=== PATIENT | female | born 1965 | race Caucasian/White ===

== ENCOUNTER → 2016-11-16 | Outpatient (CLI) | payer BC ==
[2016-08-25 14:24] VITALS: BP 119/79
--- NOTE | 2016-11-16 10:06 | MRI ---
HISTORY: Lumbosacral spondylitis Study: MRI lumbar spine without contrast Comparison: 04/08/2015 Technique: Multiplanar multi-sequence MRI of the lumbar spine was obtained. Sagittal T1, sagittal T 2, and stir weighted images, axial T1, and axial T2 images were obtained. Findings: The lumbar spine demonstrates normal alignment. No abnormal cord or marrow signal identified. The c onus of the cord terminates normally. The surrounding soft tissues are within normal limits. Verteb ral body heights are preserved. There is degenerative disc space narrowing and spondylosis at L5-S1 with associated degenerative endplate changes. T12 -- L1: No significant stenosis identified. L1 -- L2: No significant stenosis identified. L2 -- L3: No significant stenosis identified. There are mild facet degenerative changes present. L3 -- L4: No significant stenosis identified. Mild facet degenerative changes are present. L4 -- L5: No significant stenosis identified. Mild to moderate bilateral facet degenerative changes are present. L5 -- S1: There is a stable disc bulge with minimal central disc protrusion at this level contacting the thecal sac. There is no evidence of nerve root compression. IMPRESSION: Stable chronic degenerative disc disease at L5-S1 as described. Reported By:
== END ==
LOC: RAD 08:33
PROVIDERS: ATTEND Psychiatry & Neurology Neurology
DX: M43.07 Spondylolysis, lumbosacral region (principal); M51.37 Other intervertebral disc degeneration, lumbosacral region
CPT/HCPCS: 72148